=== PATIENT | male | born 1975 | race Caucasian/White ===

== ENCOUNTER → 2017-06-28 | Day surgery (SDC) | payer MEDICARE, MEDICAID ==
[2017-06-28] VITALS (8 sets, daily range): BP systolic 126–149; BP diastolic 72–88; PULSE 66–84; RESP 13–16; O2SAT 96–100
[~2017-06-28] VITALS: Ht 172.7 cm; Wt 109.7 kg
[~2017-06-28] MED LIST: ALBU8.5H2 INHALATION; Belladonna Alk-Opium 60 mg Rectal Suppository RECTAL ONE; CeFAZolin Inj 2 GM in IV Premix 1 EACH IV ONE; Dexamethasone 4 mg/mL Inj IVPUSH PRN; Dexamethasone 4 mg/mL Inj ONE; EPHEDrine Sulfate 50 mg/mL Inj IVPUSH PRN; HYDR-4003 PO; HYDROcodone-APAP 5-325 mg Tablet PO PRN; HYDROmorphone 1 mg/mL Inj IVPUSH PRN; Ketamine 10 mg/mL 20 mL Inj ONE; Lactated Ringer's 1,000 ML IV SCH; Lactated Ringer's 500 ML IV PRN; Levofloxacin 500 mg/100 mL D5W IV ONE; MetoCLOpramide 5 mg/mL 2 mL Inj IVPUSH PRN; ONDA4TAB6 PO; Ondansetron 2 mg/mL 2 mL Inj IVPUSH PRN; Ondansetron 2 mg/mL 2 mL Inj ONE; Phenylephrine 10,000 mCg/mL Inj IVPUSH PRN; Propofol 10,000 mCg/mL 20 mL Inj ONE; TAMS0.4C98 PO; fentaNYL-PF 50 mCg/mL 2 mL Inj IVPUSH PRN; fentaNYL-PF 50 mCg/mL 2 mL Inj ONE
--- NOTE | 2017-06-28 07:28 | PCM.HPANE ---
Patient Data Surgeon Admitting Provider: Attending Provider:Babak Conway MD Primary Care Physician:Keith Wyatt MD Other Provider:[facility] [employer] Anesthesia Reason for Visit Left Kidney Stone Ht/WT & BMI Height (Feet): 5 Height (Inches): 9 Weight (Kilograms): 110.31 Body Mass Index 36.00 Allergies Coded Allergies: Penicillins (Verified Allergy, Severe, RASH, N&V, 06/22/17) Past Anesthesia History Anesthesia History: Denies:: Abnormal Airway, Anesthesia Reactions, Difficult Intubation, Malignant Hyperthermia Diabetes History Hx Diabetes?: No MRSA MRSA: No Medications Hypertension Medication: No Home Meds Incl Beta Radha: No Reported Medications Ondansetron (Zofran)4 Mg Tablet4 Mg PO Q6H PRN For Nausea 06/22/17 Tamsulosin (Flomax)0.4 Mg Capsule0.4 Mg PO DAILY Ref 0 06/22/17 Albuterol HFA (Proair HFA)8.5 Gm Hfa.aer.ad2 Puffs INHALATION Q4H PRN PRN #1 INHALER 06/22/17 Hydrocodone-Acetaminophen 5-325 mg 1 Each Tablet1-2 Tablet PO Q6H PRN For Pain Ref 0 06/22/17 History History of ENT Problems?: No HEENT History: Denies:: Abnormal Airway Difficult Intubation Denture Type: None Teeth Condition: Within Normal Limits Hx of Heart Problems?: No Cardiovascular History: Denies:: AICD Abdominal Aortic Aneurism Atrial Fibrillation Cardiac Surgery Chest Pain Congestive Heart Failure Coronary Artery Disease Edema Heart Murmur Hypertension Irregular Heartbeat Pacemaker Peripheral Vascular Rheumatic Fever Thrombophlebitis Valvular Heart Disease Hx of Respiratory Problem?: Yes Respiratory History: Positive for:: Asthma Use of Inhalers / NEBS Denies:: Use of C-PAP Machine Hx Neurologic Problems?: Yes Neurological History: Denies:: Alzheimer's Disease CVA Dementia Dizziness Headaches Multiple Sclerosis Parkinson's Disease Peripheral Neuropathy Seizures TIA Hx of GI Problems?: No Hx of Problems?: Yes Genitourinary History: Positive for:: Kidney Stones (S/P LITHOTRIPSY LT STONE=CURRENT PROBLEM ALSO HAS RT STONE ON XRAY) Other Pertinent History: C/OF LT FLANK PAIN & NAUSEA Male Hx: Denies:: Prostate Problems Scrotal Mass Testicular Surgery Skin History: Denies:: History Skin Disorders? Pressure Ulcers Hx Musculoskeletal Problems?: No Hx of Psycho/Social Problems?: No Hx Surgeries?: Yes (LITHOTRIPSY) Hx Any Other Health Problems?: Yes Other History: Denies:: Cancer Endocrine Disease Hospitalization Thyroid Disease Hx Diabetes: No Hx Alcohol Use: NoHx Substance Use: NoHave You Smoked inLast 12 mo: No Stop/Bang Treated for Sleep Apnea?: No Do You Have a CPAP Machine?: No S-Snoring: Do You Snore Loudly: No T-Tired: feel tired, fatigued: Yes O-Obsered: Observed not breath: No P-Blood Pressure: treated: No B- Body Mass Index > 35 kg/m2: Yes A- Age over 50: No N- Neck Large Circumference: Yes G- Gender Male: Yes ABILIO Total Score: 4 ABILIO Risk Assessment: High Risk, =/>3 Yes ABILIO Category 4 OutPt Procedure: Yes Risk Assessment Category Category 1A: Patient has history of documented sleep apnea, and HAS NOT received any narcotic, sedative or anesthesia administration during this stay. Category 1B: Patient has history of documented sleep apnea, and HAS received any narcotic , sedative or anesthesia administration during this stay Category 2: Patient has SUSPECTED Obstructive Sleep Apnea, and HAS received any narcotic , sedative or anesthesia administration during this stay. Category 3: Patient has SUSPECTED Obstructive Sleep Apnea and HAS NOT received narcotic, sedative or anesthesia administration during this stay. Category 4: Outpatient in Procedural Areas with known sleep apnea or who screen positive for High Risk via the STOP/BANG questionnaire. Exam Exam General Appearance: Alert, Oriented X3, Cooperative, No Acute Distress HEENT/AIRWAY: MP 2 Lungs: Clear to Auscultation, Normal Air Movement Heart: Exam Unremarkable, Regular Rate/Rhythm, No Murmurs/Rubs/Gallops Plan Impression Patient chart reviewed, patient interviewed and anesthestic plan with risks, benefits, and alternatives discussed, and informed consent obtained. NPO per Anesth. Guidelines: Yes ASA Physical Status: ASA2 Mod Systemic Disease Anesthetic Plan: GA Bene/Risks/Altern/Consents: Yes HP Complete Prior to Induction: Yes Wil Parry MD Jun 28, 2017 07:28
[2017-06-28] MEDS: Lactated Ringer's 1,000 ML IV SCH ×2 (09:31→10:12)
--- NOTE | 2017-06-28 11:44 | PCM.SURGPO ---
Immediate Operative Note Date of Surgery: Jun 28, 2017 Pre Operative Diagnosis L renal calculus Post Operative Diagnosis L renal calculus Procedure Cystoscopy, L ureteroscopy, Holmium laser lithotripsy, basket extraction of calculus fragments, and L ureteral stent placement Surgeon and Patrol Guard Surgeon: Babak Conway MD Assistants: None Findings Cystoscopy revealed no bladder tumors or calculi. L semi-rigid ureteroscopy revealed no calculi in L distal or L mid ureter. A 12/14F ureteral access sheath was placed in L ureter. L flexible ureteroscopy revealed no calculi in L proximal ureter and an approx. 10-11mm L lower pole renal calculus. Holmium laser lithotripsy and basket extraction of calculus fragments were performed. L ureteral stent placement was performed. Complications There were no periprocedural complications identified. Surgical Specimen Removed: Yes Specimen sent to Pathology: No Surgical Specimen description: L renal calculus fragments sent to lab for stone analysis Anesthetic Administered: GA Grafts, Implants: Other (5F x 22-32cm multi-length L ureteral JJ stent (no string)) Output, Estimated Blood Loss: <5 Blood Admin during surgery: No Additional information Patient to return to see me in 5-8 days for cystoscopy, stent removal, and post- op visit. Babak Conway MD Jun 28, 2017 11:44
--- NOTE | 2017-06-28 12:24 | PCM.DISURG ---
Surgical Discharge Instruction Date of Service Jun 28, 2017 Dates of Hospitalization Date of Hospital Admission Jun 28, 2017 Providers Admitting Physician: Babak Conway MD Primary Care Physician: Keith Wyatt MD Attending Physician: Babak Conway MD Discharge Diagnosis Discharge Diagnosis L renal calculus Post Operative diagnosis L renal calculus Diet Discharge Diet: No restrictions, Other (Drink at least 10-12 8oz. glasses (3 liters) of fluids per day) Activity Discharge Activity-General: No driving while taking narcotic Dressing and Incisional Care Hygiene: May shower Follow Up Plan Follow-up Provider (F9): Babak Conway MD Follow-up appointment: Days (5-8 days for cystoscopy, stent removal, and post- op visit) Call your provider for: Fever, Chills, Vomiting, Other (Pain uncontrolled by pain medications) Babak Conway MD Jun 28, 2017 12:24
--- NOTE | 2017-06-28 13:03 | PCM.ANEP1 ---
Post Anesthesia PACU Phase 1 Assessment Vital Signs Vital Signs Date Time Temp Pulse Resp B/P Pulse Ox O2 Delivery O2 Flow Rate FiO2 06/28/17 12:10 74 16 149/88 96 Room Air 06/28/17 12:01 36 77 16 141/88 97 Room Air 06/28/17 11:58 80 15 139/82 97 Room Air 06/28/17 11:45 84 16 145/87 100 Simple Mask 10 06/28/17 11:40 77 16 133/77 100 Simple Mask 10 06/28/17 11:35 66 16 130/75 100 Simple Mask 10 06/28/17 11:30 36.4 68 13 135/72 99 Simple Mask 10 06/28/17 09:31 36.1 68 16 126/74 97 Room Air Anesthetic Administered: GA Level of Alertness: Sleepy, easy to arouse HAYNES's with Equal Strength: Yes Pain: No Nausea or Vomiting: No CV Function & Hydration Stable: Yes Airway Device: Oxygen Delivery: Nasal Cannula Lungs: Clear to Auscultation, Normal Air Movement Dermatome Level: Full Sensation PACU Phase 2 Assessment Complications: No Follow up Care: No Patient Instructions Provided: N/A Wil Parry MD Jun 28, 2017 13:03
--- NOTE | 2017-06-28 23:57 | OP ---
[address] [address] OPERATIVE REPORT PATIENT: JAZMYNE RICHARDSON : 1975 MR#: [id number] ADMIT: 06/28/2017 JOB ID: [id number] DATE OF SURGERY: 06/28/2017 PREOPERATIVE DIAGNOSIS(ES): Left renal calculus. POSTOPERATIVE DIAGNOSIS(ES): Left renal calculus. PROCEDURE: 1. Cystoscopy. 2. Left ureteroscopy. 3. Holmium laser lithotripsy. 4. Basket extraction of calculus fragments. 5. Left ureteral stent placement. SURGEON: Babak Conway MD. SCREEN PRINTING SUPERVISOR: None. ANESTHESIA: General. ESTIMATED BLOOD LOSS: Less than 5 mL. SPECIMENS: Left renal calculous fragments sent to the lab for stone analysis. DRAINS: A 5-Swiss z 22-32 cm, multi-length, left ureteral double -J stent. SPECIMENS: Left renal calculous fragments sent to the lab for stone analysis. DRAINS: A 5-Swiss x 22-32 cm, multi-length, left ureteral double-J stent. COMPLICATIONS: None. CONDITION: Stable. FINDINGS: Cystoscopy revealed no bladder tumors or calculi. Left semi-rigid ureteroscopy revealed no calculi in left distal or left mid ureter. A 12/14-Swiss ureteral access sheath was placed in the left ureter. Left flexible ureteroscopy revealed no calculi in left proximal ureter, and an approximately 10-11 mm left lower pole renal calculus. Holmium laser lithotripsy and basket extraction of calculus fragments were performed. Left ureteral stent placement was performed. INDICATIONS: The patient is a 42-year-old male with a left renal calculus seen by TOÑA Mauricio in the office with a left renal calculus. The patient now presents for cystoscopy, left ureteroscopy, holmium laser lithotripsy, basket extraction of calculus fragments and left ureteral stent placement. PROCEDURE IN DETAIL: The patient was brought to the operating room and placed supine on the operating table. The patient was given Levaquin IV antibiotics. Sequential compression device boots were placed. General anesthesia was administered. The patient was brought down into dorsal lithotomy position. The patient was prepped and draped in standard surgical fashion. A 22-Swiss rigid cystoscope was placed in the distal urethra without difficulty. Cystoscopy revealed normal distal urethra. No bladder tumors or calculi and bilateral ureteral orifices in normal position. An angle tip Ultra Track guidewire was passed into the left ureteral orifice and passed up the left ureter into the left renal pelvis. The rigid cystoscope was removed from the patient. The guidewire secured to the drape with a Katherine clamp and safety wire. A semi-rigid ureteroscope was passed through the urethra and bladder and into the left ureteral orifice with assistance of a PTFE guidewire. Left semi-rigid ureteroscopy revealed no calculi in left distal or left mid ureter. The PTFE guidewire was advanced up the left ureter into the left renal pelvis. The semi-rigid ureteroscope was removed from the patient. A 12/14-Swiss ureteral access sheath was passed over the PTFE guidewire through the urethra and bladder and up the left ureter into the left mid ureter. The inner portion of the ureteral access sheath and PTFE guidewire were removed from the patient. A flexible ureteroscope was advanced through the ureteral access sheath up the left ureter into the left proximal ureter. Left flexible ureteroscopy revealed no calculi in left proximal ureter and an approximately 10-11 mm left lower pole renal calculus. Holmium laser lithotripsy was performed to fragment the calculus into small fragments using a 273 micron holmium laser fiber. Basket extraction of calculus fragments was performed using a 2.2-Swiss NCircle Nitinol basket and calculus fragments were sent to the lab for stone analysis. The left renal pelvis and all calices were visualized and no significant 2 mm or larger calculus fragments were seen. A small amount of contrast was instilled into the left renal collecting system to illuminate the left renal collecting system and aid in stent placement. The flexible ureteroscope and ureteral access sheath were backed down the left ureter and the entire left ureter was visualized. No significant 2 mm or larger calculus fragments were seen. The flexible ureteroscope and ureteral access sheath were removed from the patient. The rigid cystoscope was passed over the safety guidewire through the urethra into the bladder. A 5-Swiss x 22-32 cm, multi-length, ureteral double-J stent, with the stent string removed prior to stent placement, was passed over the guidewire through cystoscope and passed up the left ureter and placed so that the proximal pigtail was located in the left renal pelvis and the distal pigtail was located in the bladder. The guidewire was removed. Correct positioning of the stent was confirmed both fluoroscopically and under direct visualization using cystoscope. Good efflux of contrast could be seen draining from the distal end of the stent into the bladder further confirming correct stent positioning. Thus, left ureteral stent placement was performed. The bladder was drained via the cystoscope. Cystoscope was removed from the patient. Skin was cleaned and dried. The patient has placed in supine position. Patient was awakened from general anesthesia and transferred to the recovery room in stable condition. The patient tolerated the procedure well. Postop plan is for the patient to return to see me in the office in 5-8 days for cystoscopy, stent removal, and a postoperative visit.
== END | disposition home or self-care (01) ==
LOC: SAS 08:50
PROVIDERS: ATTEND Urology
DX: N20.0 Calculus of kidney (principal); J45.909 Unspecified asthma, uncomplicated
CPT/HCPCS: 52356; 82360; C2617; J0690; J1100; J2250; J2405; J2704; J3010; J7120